=== PATIENT | female | born 1985 | race Caucasian/White ===

== ENCOUNTER 2016-10-30 22:00 | Inpatient (IN) | payer BC ==
[~2016-10-30] VITALS: Ht 167.6 cm; Wt 75.0 kg
[~2016-10-30 22:00] MED LIST: MISCCAP80 PO; OMEG10007 PO; PRENTAB26 PO
[2016-10-30] MEDS ORDERED: LACTATED RINGER'S 1000ML 1,000 ML IV SCH (22:19)
[2016-10-30 22:58] LABS: HEMATOCRIT 37.2 % (37-47); MEAN CELL VOLUME 92.1 fL (80-100); MEAN CORPUSCULAR HEMOGLOBIN 31.4 pg (25-34); MEAN CORPUSCULAR HGB CONC 34.1 g/dl (32-36); MEAN PLATELET VOLUME 12.2 fL (7.4-10.4); PLATELET COUNT 152 K/uL (130-400); RED BLOOD COUNT 4.04 M/uL (4.2-5.4); WHITE BLOOD COUNT 16.71 K/uL (4.8-10.8)
[2016-10-30] MEDS ORDERED: PRENTAB26 PO (23:34)
[2016-10-30] MEDS ORDERED: BUPIVACAINE 0.25% 30 ML VIAL ONE (23:36)
[2016-10-30] MEDS ORDERED: EpHEDrine SULFATE INJ 50 MG/ML AMP ONE (23:36)
[2016-10-30] MEDS ORDERED: FENTANYL CITRATE INJ 50 MCG/1 ML 2 ML VIAL ONE (23:37)
[2016-10-30] MEDS ORDERED: FENTANYL 2MCG/ML ROPIV 1.25MG/ML 100ML BAG EPI ONE (23:37)
[2016-10-31] MEDS ORDERED: LACTATED RINGER'S 1000ML 500 ML IV PRN (00:09)
[2016-10-31] MEDS ORDERED: EpHEDrine SULFATE INJ 50 MG/ML AMP IV PRN (00:15)
[2016-10-31] MEDS ORDERED: DiphenhydrAMINE HCL 50 MG/ML VIAL IV PRN (00:15)
[2016-10-31] MEDS ORDERED: NALOXONE HCL INJ 0.4 MG/1 ML VIAL/CARP IV PRN (00:15)
[2016-10-31] MEDS ORDERED: NALBUPHINE HCL INJ 10 MG/ML AMP IV PRN (00:15)
[2016-10-31] MEDS ORDERED: FENTANYL 2MCG/ML ROPIV 1.25MG/ML 100ML BAG EPI PRN (00:15)
[2016-10-31] MEDS ORDERED: ONDANSETRON INJ 2 MG/ML 2 ML VIAL IV PRN (00:15)
[2016-10-31 00:37] VITALS: Ht 167.6 cm; Wt 75.0 kg
[2016-10-31] MEDS ORDERED: OXYTOCIN 30 UNITS/500ML NSS IV ONE (03:17)
[2016-10-31] MEDS ORDERED: ACETAMINOPHEN/CODEINE 300/30MG TAB PO PRN ×2 (04:30)
[2016-10-31] MEDS ORDERED: OXYCODONE/ACETAMINOPHEN 5-325 TAB PO PRN (04:30)
[2016-10-31] MEDS ORDERED: SUPERCREAM 0.870 % 15GM JAR EXT PRN (04:30)
[2016-10-31] MEDS ORDERED: OXYTOCIN 30 UNITS/500ML NSS IV PRN (04:30)
[2016-10-31] MEDS ORDERED: HYDROCORTISONE ACETATE 25 MG SUPP PR PRN (04:30)
[2016-10-31] MEDS ORDERED: ACETAMINOPHEN 325 MG TAB PO PRN (04:30)
[2016-10-31] MEDS ORDERED: LANOLIN OINT EXT PRN ×2 (04:30)
[2016-10-31] MEDS ORDERED: BENZOCAINE 20% AER SPR 82.5 GM CAN EXT PRN (04:30)
--- NOTE | 2016-10-31 05:28 | Anesthesia Procedure Note ---
Anesthesia Epidural Removal Nt Date & Time Oct 31, 2016 at 05:28 Vital Signs Pain Intensity: 0.0 Notes Mental Status: alert / awake / arousable, participated in evaluation Nausea / Vomiting: adequately controlled Pain: adequately controlled Airway Patency, RR, SpO2: stable & adequate BP & HR: stable & adequate Hydration State: stable & adequate Neuraxial Anesthesia: was administered Anesthetic Complications: no major complications apparent, pt satisfied with anesthetic care Epidural: removed without complications, with tip intact
--- NOTE | 2016-10-31 06:47 | OPERATIVE REPORT ---
DATE OF OPERATION: 10/31/2016 DELIVERY NOTE The patient delivered a live male with left hand compound presentation. was delivered without difficulty and placed on mother's abdomen. The patient had requested a 5 minute delayed cord clamp, so cord was clamped after 5 minutes. Weight is pending, Apgars 8 and 9. Placenta was spontaneously delivered. Cord blood was obtained. Placenta appears grossly normal. The patient is requesting to take the placenta home and her wish has been granted. Inspection of the perineum showed a second-degree midline laceration which was repaired with 2-0 Vicryl in layers. Rectal exam post repair showed good sphincter tone. No sutures are palpated in the rectum. There is good hemostasis at the end of the procedure. Estimated blood loss is 400 mL. Baby and mother are doing well in recovery. All instruments are removed from the vagina and accounted for x2 including sponges, needles and retractors. I attest to the content of the Intraoperative Record and any orders documented therein. Any exception s are noted below.
[2016-10-31] MEDS ORDERED: COUGH DROP (SUGAR FREE) LOZ 24 LOZ/1 BOX ONE (06:49)
[2016-10-31 08:00] VITALS: BP 103/68; PULSE 102; TEMP 36.8; O2SAT 96
[2016-10-31] MEDS: IBUPROFEN 600 MG TAB PO PRN ×4 (08:04→21:02)
[2016-10-31 11:28] VITALS: BP 111/70; PULSE 90; TEMP 36.4; O2SAT 96
[2016-10-31] MEDS: PRENATAL VITAMIN TAB PO SCH (12:10)
[2016-10-31] MEDS: FERROUS SULFATE 325 MG TAB PO SCH (12:10)
[2016-10-31 16:30] VITALS: BP 109/71; PULSE 84; TEMP 36.7; O2SAT 95
[2016-10-31 19:30] VITALS: BP 115/78; PULSE 90; TEMP 36.5
[2016-10-31] MEDS ORDERED: NURSING VERBAL MED ORDER ONE (21:30)
[2016-10-31] MEDS: DOCUSATE SODIUM 100 MG CAP PO SCH (21:45)
[2016-10-31 23:50] VITALS: BP 103/67; PULSE 82; TEMP 36.4
[2016-11-01] MEDS: IBUPROFEN 600 MG TAB PO PRN ×5 (00:03→19:30)
[2016-11-01 03:40] VITALS: BP 105/69; PULSE 73; TEMP 36.5
[2016-11-01 08:00] VITALS: BP 116/70; PULSE 89; TEMP 35.8; O2SAT 96
[2016-11-01] MEDS: DOCUSATE SODIUM 100 MG CAP PO SCH (08:31)
[2016-11-01] MEDS: PRENATAL VITAMIN TAB PO SCH (08:31)
[2016-11-01] MEDS: FERROUS SULFATE 325 MG TAB PO SCH (08:31)
--- NOTE | 2016-11-01 08:49 | OB/GYN Progress Note ---
[facility] Progress Note Date of Service: Nov 01, 2016. Patient is seen and examined. She feels well, no complaints. Likes to go home Ambulating without dizziness Voiding without difficulty Tolerating regular diet with out N&V Bleeding is minimal No fever/ chills/ CP/ SOB/ N&V/ Leg pain Breast feeding without problems Date Time Temp Pulse Resp B/P (MAP) Pulse Ox O2 Delivery O2 Flow Rate FiO2 11/01/16 03:40 36.5 73 16 105/69 (81) Room Air 10/31/16 23:50 Room Air 10/31/16 23:50 36.4 82 16 103/67 (79) Room Air 10/31/16 19:30 36.5 90 20 115/78 (90) Room Air 10/31/16 16:30 Room Air 10/31/16 16:30 36.7 84 18 109/71 (84) 95 Room Air 10/31/16 11:28 36.4 90 18 111/70 (84) 96 Room Air Test 10/30/16 22:45 White Blood Count 16.71 H Red Blood Count 4.04 L Hemoglobin 12.7 Hematocrit 37.2 Mean Corpuscular Volume 92.1 Mean Corpuscular Hemoglobin 31.4 Mean Corpuscular Hemoglobin Concent 34.1 RDW Standard Deviation 43.9 RDW Coefficient of Variation 13.2 Platelet Count 152 Mean Platelet Volume 12.2 H PE: General: Alert, orientedx3, NAD Abd: soft, NT, fundus firm, below Umbilicus Perineum intact, Lochia rubra minimal Ext; NT, no edema AP: 31 yo s/p , ppd# 1 VSS Afebrile doing well CBC pending Continue routine care All questions were answered Instructions were given when to call D/C home this afternoon
--- NOTE | 2016-11-01 08:51 | Discharge Instructions ---
Discharge Instructions Date of Service Nov 01, 2016. Admission Reason for Admission: Check Labor Discharge Discharge Diagnosis / Problem: Discharge Goals Goal(s): Routine recovery after delivery Activity Recommendations Activity Limitations: as noted below Lifting Limitations: gradually increase as tolerated Exercise/Sports Limitations: until after follow-up appointment May Resume Sexual Activity: after follow-up appointment Shower/Bathe: no limitations Driving or Machine Use: ACTIVITY RECOMMENDATIONS: * Gradual return to full activity over the next 2-3 weeks. * No lifting - nothing heavier than baby over the next 2-3 weeks. * Do not engage in vigorous exercise, sexual activity or sports until cleared by your physician. * Do not drive or operate any motorized equipment until cleared by your physician. * You may shower/bathe daily. BREAST CARE: If you are not breast feeding: * Wear a supportive bra 24 hours a day for one to two weeks. * Avoid stimulating your breasts and nipples as much as possible during the first few weeks after delivery. * When taking a shower, have the warm water hit your back, not breasts. * When your breasts feel full, apply ice packs. Usually three to four times a day helps ease the discomfort. * Take a mild pain medication (Tylenol/Motrin) when you are uncomfortable. If breast feeding: * Use breast milk to lubricate nipples. Lansinoh cream may be used for sore nipples. You do not need to remove cream prior to breast feeding. If using a different brand of cream, check the label for directions regarding removal of cream prior to nursing. * Wear a supportive bra. * If having problems with breasts or breast feeding, call a data integrity consultant or your health care provider. EPISIOTOMY CARE: After delivery, if you have an episiotomy (stitches), the following steps will ease discomfort and aid healing. * For the first 24 hours after delivery, place ice packs next to your episiotomy to help reduce swelling. * After the first 24 hour-period, sitz baths, either portable or in the tub, are suggested. A shower with a shower arm sprayed over the episiotomy may be comforting. * Marlen care should be done after each voiding and bowel movement. Squirt warm water from a plastic bottle over the perineum (region of the body between the anus and urinary opening) and pat dry. * Use Dermoplast to ease discomfort. Shake container. [place] directly over the episiotomy. * Place a Tucks on a clean sanitary pad next to your episiotomy. OVER THE COUNTER MEDICATION: * For discomfort or pain, you may use Acetaminophen (Tylenol), Ibuprofen (Advil ), or Naproxen (Aleve) following the package directions. * For constipation you may use Colace following the package directions. SPECIAL CARE INSTRUCTIONS: When you are discharged from the hospital, it is important for you to follow the instructions listed below: * During the first week at home, you should be able to care for yourself and your baby. In addition, the usual light household activities are encouraged. * Limit your activities to the way you feel. Do not try to clean the house or move furniture. Be sensible. * If you actively engage in sports and have done so up until the time of your delivery, you may resume these activities as soon as you feel able. This may take up to one month or even longer. Use good judgment. * Continue to take your vitamins for at least six weeks after the of your baby. * Your diet need not be limited unless you were on a special diet before your delivery. Breast-feeding mothers need around 2500 calories per day and at least 64-80 ounces of fluid per day (8 to 10 glasses). * You should eat foods from the four major food groups. Crash diets or fad diets are to be avoided. Eating lean meats, fresh fruits and vegetables, low-fat dairy products, high fiber foods and a regular exercise program, will help you get back to your pre- weight without putting your health at risk. * Constipation is sometimes a problem after delivery. Take a mild laxative as needed. If breast feeding, Milk of Magnesia is acceptable to use. You may use a suppository or Fleets enema if no episiotomy. * A daily shower or tub bath is suggested. Be sure to thoroughly and gently dry the perineum. * A bloody vaginal discharge will usually continue until around four weeks post . A small amount of bleeding may continue for as long as six weeks. Vaginal discharge changes from the bright red bleeding after delivery to pink then brownish and finally yellowish-pink before becoming white and disappearing. * Bleeding may increase with activity. Your first period may come in 4-8 weeks. If you are breast feeding, your period may be delayed even longer. * [place] (sex) can begin whenever both you and your partner feel comfortable and do not have any form of genital infection. It is recommended that you wait until after your return appointment and discuss with your physician. If you have questions, please talk to your health care practitioner. A condom should be used to prevent infection and . * Foreplay, gentle intercourse and lubrication is very important the first several times to prevent pain. A water-based lubricant such as K-Y jelly or Astroglide may be used. * Tampons may be used six weeks after delivery. * Douching should be avoided for 6 weeks after delivery. * If you have RH negative blood and your baby is RH positive, you will receive RHOGAM by injection prior to discharge. The nurse will give you a card to keep with you that has the date and place that you received RHOGAM after delivery. * During your care, you had a Rubella screen done to check for the presence of rubella antibodies in your blood. If your test was negative, you will receive a Rubella vaccine prior to discharge. This vaccine may cause a fever, soreness at the injection site and flu-like symptoms. If these symptoms persist, notify your health care practitioner. is not advised for three months after a Rubella vaccine. There is a higher chance of having a baby with defects if conceived within three months of getting the vaccine. * If you were discharged 24 hours from delivery or before 48 hours: Visiting nurses will come to your home 48 hours after discharge to assess you and your baby. The visiting nurse will meet with you while you are in the hospital to arrange a time and get directions to your home. * Verbalizes understanding of car seat law as reviewed with patient nursing. * Car Seat hand-out given and reviewed with patient by nursing. * Shaken baby information reviewed with patient by nursing. Call you doctor if: * Heavy bleeding (saturating several pads an hour) or passing clots the size of your fist. * A fever >101 degrees F (38.3 degrees C) on two occasions four hours apart and/or chills. * Unusual pain in the pelvic or vaginal areas. * "Baby Blues" lasting longer than two weeks. If you have any questions or concerns, call your health care practitioner at . FOLLOW-UP VISIT: * Please call the office at to schedule a 6 week examination. It is important you keep this appointment. * It is important for you to make arrangements for either yearly or twice yearly check-ups thereafter. . Current Hospital Diet Patient's current hospital diet: Regular OB Diet Discharge Diet Recommended Diet: Regular Diet Pending Studies Studies pending at discharge: no Medical Emergencies . Who to Call and When: Medical Emergencies: If at any time you feel your situation is an emergency, please call 911 immediately. . Non-Emergent Contact Non-Emergency issues call your: Surgeon Call Non-Emergent contact if: temperature is above 100.5, your pain is not controlled, your pain is worsening . . "Provider Documentation" section prepared by Celestino Barnett. . VTE Core Measure Inpt VTE Proph given/why not?: Treatment not indicated
[2016-11-01 09:43] LABS: BASO % 0.3 %; BASO ABS # 0.05 K/uL (0-0.2); COMPLETE YES; EOS % 1.8 %; HEMATOCRIT 35.6 % (37-47); LYMPH % 10.9 %; LYMPH ABS # 1.66 K/uL (1.2-3.4); MEAN CELL VOLUME 94.7 fL (80-100); MEAN CORPUSCULAR HEMOGLOBIN 32.7 pg (25-34); MEAN CORPUSCULAR HGB CONC 34.6 g/dl (32-36); MEAN PLATELET VOLUME 11.8 fL (7.4-10.4); MONO % 4.6 %; NEUT % 81.4 %; PLATELET COUNT 144 K/uL (130-400); RED BLOOD COUNT 3.76 M/uL (4.2-5.4); WHITE BLOOD COUNT 15.27 K/uL (4.8-10.8)
[2016-11-01 15:43] VITALS: BP 98/66; PULSE 84; TEMP 36.7
[2016-11-01 19:00] VITALS: BP_DIAS 66; PULSE 84; TEMP 36.7
[2016-11-01] MEDS ORDERED: BISACODYL 5 MG TABEC PO SCH (20:00)
[2016-11-02] MEDS ORDERED: BISACODYL 10 MG SUPP PR PRN (07:00)
== END 2016-11-01 20:45 | disposition home or self-care (01) | DRG 775 ==
LOC: C.OPB 22:00 → C.LD 22:00 → C.OPB 22:27 → C.OBG 10-31 09:26
PROVIDERS: ADMIT Obstetrics & Gynecology; ATTEND Obstetrics & Gynecology
PROC: 0KQM0ZZ Repair Perineum Muscle, Open Approach (ICD-10-PCS; principal; 2016-10-31)
PROC: 10E0XZZ Delivery of Products of Conception, External Approach (ICD-10-PCS; principal; 2016-10-31)
PROC: 10907ZC Drainage of Amniotic Fluid, Therapeutic from Products of Conception, Via Natural or Artificial Opening (ICD-10-PCS; principal; 2016-10-31)
DX: O70.1 Second degree perineal laceration during delivery (principal); Z37.0 Single live birth; Z3A.39 39 weeks gestation of pregnancy

== ENCOUNTER → 2017-01-19 | Outpatient (CLI) | payer BC | END | disposition home or self-care (01) | LOC: C.LAB 07:29 | PROVIDERS: ATTEND Nutritionist | DX: R53.83 Other fatigue (principal) ==

== ENCOUNTER 2018-07-16 17:57 | Inpatient (IN) ==
[2018-07-16] MEDS ORDERED: OXYTOCIN 30 UNITS/500 ML BAG IV PRN ×2 (18:04→21:20)
[2018-07-16] MEDS ORDERED: LACTATED RINGER'S 1,000 ML IV PRN ×2 (18:04→18:43)
--- NOTE | 2018-07-16 18:10 | Obstetrical Progress Note ---
Date of Service July 16, 2018 Subjective Admission note 32 F [id number] at 39 weeks admitted with SROM and onset of labor. GBS is negative. FHT Cat 1. Exam shows cervix to be 4-5/60/-2/clear amniotic fluid leaking/ vertex/anterior. Patient will be requesting epidural. No complications during this . Physical Exam 2 Vital Signs (Past 24 Hours): Last Vital Signs Pulse 98 H 07/16/18 18:04 BP 124/89 07/16/18 18:04
[2018-07-16] MEDS ORDERED: ePHEDrine sulfate 50 MG/ML AMP ONE (18:28)
[2018-07-16] MEDS ORDERED: fentaNYL citrate 100 MCG/2 ML VIAL ONE (18:28)
[2018-07-16] MEDS ORDERED: BUPIVACAINE 0.25% 30 ML VIAL ONE (18:28)
[2018-07-16] MEDS ORDERED: fentaNYL 2MCG/ML ROPIV 1.25MG/ML 100 ML BAG EPI ONE (18:29)
--- NOTE | 2018-07-16 18:41 | Anesthesiology Consultation ---
Date of Service July 16, 2018 Assessment & Plan (1) Encounter for pre-operative examination: Chart Review Chart Review: Patient NOT seen in Pre Admission Testing and Acceptable Risk for Labor Epidural Consults Requested none History Height/Weight Height: 5 ft 6 in Weight: 79.7 kg Allergies Allergy/AdvReac Type Severity Reaction Status Date / Time No Known Allergies Allergy Unverified 07/16/18 18:08 Medications Home Medications Medication Instructions Recorded Confirmed Last Taken lactobacillus combination no.4 3,000 mmu cells PO DAILY 07/16/18 07/16/18 08:00 [Probiotic] omega 4-bgz-[id number]-fish oil [Fish Oil] 1 cap PO DAILY 07/16/18 07/16/18 07/16/18 08 :00 vit no.[id number] 1 tab PO DAILY 07/16/18 07/16/18 07/16/18 08:00 [ Vitamin] Past Medical History healthy Past Surgical History d and c Past Anesthesia History No Hx of Anesthesia Complications and No Family Hx of Anesthesia Complications History of PONV No Motion Sickness Screening History of Motion Sickness: No Social History Smoking Status: Never smoker Hx Alcohol Use: No Hx Substance Use: No Exercise / Class Metabolic Activity II 4-5 Yardwork/Stairs/Walk up hill Physical Exam Vital Signs Last Vital Signs Temp 36.8 C 07/16/18 18:19 Pulse 109 H 07/16/18 18:59 Resp 18 07/16/18 18:19 BP 125/86 07/16/18 18:59 Pulse Ox 99 07/16/18 18:58 Testing Laboratory Results 07/16/18 18:30
[2018-07-16 18:43] LABS: Hematocrit (blood only) 36.1 % (37-47); Hemoglobin 12.5 g/dL (12.0-16.0); Mean Corpuscular Volume 91.6 fL (80-100); Mean Platelet Volume 12.2 fL (7.4-10.4); Platelet Count 155 K/uL (130-400); RDW Coefficient of Variation 13.4 % (11.5-14.5); RDW Standard Deviation 44.4 fL (36.4-46.3); Red Blood Count 3.94 M/uL (4.2-5.4); White Blood Count 11.89 K/uL (4.8-10.8)
[2018-07-16] MEDS ORDERED: DiphenhydrAMINE HCL 50 MG/ML VIAL IV PRN (18:43)
[2018-07-16] MEDS ORDERED: ONDANSETRON INJ 2 MG/ML 2 ML VIAL IV PRN (18:43)
[2018-07-16] MEDS ORDERED: NALBUPHINE HCL INJ 10 MG/ML AMP IV PRN (18:43)
[2018-07-16] MEDS ORDERED: fentaNYL 2MCG/ML ROPIV 1.25MG/ML 100 ML BAG EPI PRN (18:43)
[2018-07-16] MEDS ORDERED: NALOXONE HCL 1 MG in SODIUM CHLORIDE 0.9% 1000ML 1,000 ML IV PRN (18:43)
[2018-07-16] MEDS ORDERED: ePHEDrine sulfate 50 MG/ML AMP IV PRN (18:43)
[2018-07-16] MEDS ORDERED: NALOXONE HCL 0.4 MG/1 ML VIAL/CARP IV PRN (18:43)
[2018-07-16 18:46] LABS: Mean Corpuscular Hgb Conc 34.6 g/dL (32-36)
[2018-07-16] MEDS ORDERED: LACTATED RINGER'S 1,000 ML IV SCH (19:00)
[2018-07-16] MEDS ORDERED: CALCIUM CARBONATE 500 MG CHEWABLE TAB PO PRN (19:37)
[2018-07-16] MEDS ORDERED: HYDROCORTISONE ACETATE 25 MG SUPP PR PRN (21:20)
[2018-07-16] MEDS ORDERED: BISACODYL 10 MG SUPP PR PRN (21:20)
[2018-07-16] MEDS ORDERED: ACETAMINOPHEN 325 MG TAB PO PRN (21:20)
[2018-07-16] MEDS ORDERED: DIPHTHERIA/TETANUS/PERTUSSIS 0.5 ML SYR/VIAL IM ONE (21:20)
[2018-07-16] MEDS ORDERED: BENZOCAINE 20% AER SPR 82.5 GM CAN EXT PRN (21:20)
[2018-07-16] MEDS ORDERED: SUPERCREAM 0.870% 15 GM JAR EXT PRN (21:20)
--- NOTE | 2018-07-16 21:24 | Procedure Note ---
Vaginal Delivery Summary Date of Service July 16, 2018 Supervising Physician Co-Signing Physician Notes Delivery note live male over intact perineum EDEN with Apgars 8/9. cord blood obtained followed by spontaneous delivery of placenta. Small 1st degree tear repaired with 4/0 Vicryl suture. EBL 100 ml. Final sponge, needle amnd instrument count are correct. Mom and baby stable.
[2018-07-17] MEDS: IBUPROFEN 600 MG TAB PO PRN ×4 (02:21→23:16)
[2018-07-17 07:23] LABS: Hematocrit (blood only) 33.8 % (37-47); Hemoglobin 11.8 g/dL (12.0-16.0); Mean Corpuscular Hgb Conc 34.9 g/dL (32-36); Mean Corpuscular Volume 93.4 fL (80-100); Mean Platelet Volume 11.9 fL (7.4-10.4); Platelet Count 154 K/uL (130-400); RDW Coefficient of Variation 13.3 % (11.5-14.5); RDW Standard Deviation 45.5 fL (36.4-46.3); Red Blood Count 3.62 M/uL (4.2-5.4); White Blood Count 15.72 K/uL (4.8-10.8)
--- NOTE | 2018-07-17 07:46 | Anesthesia Procedure Note ---
Date of Service July 17, 2018 Anesthesia Post Epidural Note Vital Signs Vital Signs: Temp Pulse Pulse Resp BP BP Pulse Ox 07/17/18 02:15 36.5 C 100 H 100 H 20 110/66 110/66 07/17/18 00:20 36.8 C 94 H 18 112/59 L 07/16/18 23:56 94 H 18 112/59 L 07/16/18 23:04 100 H 18 106/62 07/16/18 22:49 100 H 112/62 07/16/18 22:45 36.5 C 18 07/16/18 22:34 101 H 115/66 07/16/18 22:19 92 H 109/62 07/16/18 22:15 36.5 C 18 07/16/18 22:04 86 116/56 L 07/16/18 21:45 18 07/16/18 21:30 18 07/16/18 21:19 91 H 120/67 07/16/18 21:08 111 H 99 07/16/18 21:05 123 H 130/76 07/16/18 21:03 114 H 100 07/16/18 20:58 105 H 100 07/16/18 20:53 96 H 100 07/16/18 20:49 95 H 116/74 07/16/18 20:48 105 H 99 07/16/18 20:43 96 H 100 07/16/18 20:38 109 H 99 07/16/18 20:35 97 H 111/73 07/16/18 20:33 96 H 99 07/16/18 20:30 18 07/16/18 20:28 107 H 99 07/16/18 20:23 99 H 99 07/16/18 20:20 98 H 103/69 07/16/18 20:18 94 H 99 07/16/18 20:13 103 H 99 07/16/18 20:08 102 H 118/74 97 07/16/18 20:05 103 H 84/55 L 07/16/18 20:03 99 H 98 07/16/18 20:00 18 07/16/18 19:58 96 H 98 07/16/18 19:53 98 H 99 07/16/18 19:50 90 114/58 L 07/16/18 19:48 98 H 98 07/16/18 19:43 107 H 99 07/16/18 19:38 99 H 99 07/16/18 19:33 102 H 99 07/16/18 19:31 85 104/55 L 07/16/18 19:30 18 07/16/18 19:29 96 H 103/56 L 07/16/18 19:28 98 H 98 07/16/18 19:26 99 H 103/56 L 07/16/18 19:23 91 H 102/56 L 99 07/16/18 19:20 90 102/55 L 07/16/18 19:18 95 H 98 07/16/18 19:17 103 H 104/56 L 07/16/18 19:14 96 H 105/57 L 07/16/18 19:13 100 H 99 07/16/18 19:11 95 H 103/64 07/16/18 19:08 98 H 119/77 97 07/16/18 19:04 104 H 120/76 07/16/18 19:03 102 H 97 07/16/18 19:02 99 H 119/79 07/16/18 18:59 109 H 125/86 07/16/18 18:58 107 H 99 07/16/18 18:56 98 H 126/83 07/16/18 18:53 100 H 98 07/16/18 18:48 101 H 100 07/16/18 18:43 93 H 100 07/16/18 18:34 96 H 97 07/16/18 18:19 36.8 C 18 07/16/18 18:04 98 H 124/89 Pain Intensity Abdomen: Pain Intensity: 3 Notes Mental Status: alert / awake / arousable and participated in evaluation Nausea / Vomiting: adequately controlled Pain: adequately controlled Airway Patency, RR, SpO2: stable & adequate BP & HR: stable & adequate Hydration State: stable & adequate Neuraxial Anesthesia: was administered and sensory block is resolving Anesthetic Complications: no major complications apparent Epidural: Removed without complications and With tip intact
[2018-07-17] MEDS ORDERED: NON-FORMULARY MEDICATION (Lactobacillus Combination No.4 [Probiotic] 3,000 mmu cells) PO SCH (09:00)
[2018-07-17] MEDS ORDERED: OSELTAMIVIR PHOSPHATE 75 MG CAP PO SCH (09:00)
[2018-07-17] MEDS ORDERED: PRENATAL VITAMIN 1 TAB PO SCH (09:00)
[2018-07-17] MEDS: OMEGA-3 (PURIFIED FISH OIL) 1 GM CAP PO SCH (10:15)
[2018-07-17] MEDS: PRENATAL VITAMIN 1 TAB PO SCH (10:15)
[2018-07-17] MEDS: DOCUSATE SODIUM 100 MG CAP PO SCH ×2 (10:15→21:31)
[2018-07-17] MEDS: OSELTAMIVIR PHOSPHATE 75 MG PO SCH (10:16)
[2018-07-17] MEDS ORDERED: CALCIUM CARBONATE 500 MG CHEWABLE TAB PO PRN (10:21)
[2018-07-17] MEDS ORDERED: GUAIFENESIN/CODEINE 200MG/20MG 10ML UDC PO PRN (10:26)
--- NOTE | 2018-07-17 10:29 | Obstetrical Progress Note ---
Date of Service July 17, 2018 Assessment & Plan (1) normal course: PPD #1 pt doing well c/o cough Rx for Guafenesin anticipate dich tomorrow Subjective Ambulation: ambulating normally Voiding: no voiding problems Passing Gas:: Yes Diet Tolerance:: regular diet Lochia:: Small Feeding Type:: breast feeding Review of Systems All systems reviewed & are unremarkable except as noted in HPI & below Physical Exam Vital Signs (Past 24 Hours) Last Vital Signs Temp 36.5 C 07/17/18 02:15 Pulse 100 H 07/17/18 02:15 Resp 20 07/17/18 02:15 BP 110/66 07/17/18 02:15 Pulse Ox 99 07/16/18 21:08 Constitutional WD/WN, vitals as above well developed and well nourished Eyes PERRL, conjunctivae normal, anicteric sclerae Neck trachea midline, no thyromegaly Respiratory normal respiratory effort, lungs clear to auscultation Auscultation: no crackles, no rales and no wheezes Cardiovascular RRR, no murmur, no edema Gastrointestinal (Abdomen) normal bowel sounds, soft, nontender, no hepatosplenomegaly Uterus is below umbilicus Musculoskeletal no cyanosis or clubbing, extremities motor strength 5/5 Skin no rashes, warm and dry Neurologic patellar DTR's 2+ bilat, sensation intact Psychiatric A+Ox3, euthymic affect Genitourinary normal external appearance
[2018-07-17] MEDS ORDERED: BISACODYL 5 MG TABEC PO SCH (20:00)
[2018-07-18 07:07] LABS: Hematocrit (blood only) 37.2 % (37-47); Hemoglobin 12.7 g/dL (12.0-16.0)
[2018-07-18] MEDS: DOCUSATE SODIUM 100 MG CAP PO SCH (08:10)
[2018-07-18] MEDS: OMEGA-3 (PURIFIED FISH OIL) 1 GM CAP PO SCH (08:11)
[2018-07-18] MEDS: OSELTAMIVIR PHOSPHATE 75 MG PO SCH (08:11)
[2018-07-18] MEDS: PRENATAL VITAMIN 1 TAB PO SCH (08:11)
--- NOTE | 2018-07-18 09:38 | Obstetrical Progress Note ---
Date of Service July 18, 2018 Assessment & Plan (1) normal course: PPD #2 pt doing well no complaints disch home Subjective Ambulation: ambulating normally Voiding: no voiding problems Passing Gas:: Yes Diet Tolerance:: regular diet Lochia:: Small Feeding Type:: breast feeding Review of Systems All systems reviewed & are unremarkable except as noted in HPI & below Physical Exam Vital Signs (Past 24 Hours) Last Vital Signs Temp 36.5 C 07/18/18 07:24 Pulse 89 07/18/18 07:24 Resp 18 07/18/18 07:24 BP 101/70 07/18/18 07:24 Pulse Ox 97 07/18/18 07:24 Constitutional WD/WN, vitals as above well developed and well nourished Eyes PERRL, conjunctivae normal, anicteric sclerae Neck trachea midline, no thyromegaly Respiratory normal respiratory effort, lungs clear to auscultation Auscultation: no crackles, no rales and no wheezes Cardiovascular RRR, no murmur, no edema Gastrointestinal (Abdomen) normal bowel sounds, soft, nontender, no hepatosplenomegaly Uterus is below umbilicus Musculoskeletal no cyanosis or clubbing, extremities motor strength 5/5 Skin no rashes, warm and dry Neurologic patellar DTR's 2+ bilat, sensation intact Psychiatric A+Ox3, euthymic affect Genitourinary normal external appearance
== END 2018-07-18 10:20 | disposition home or self-care (01) | DRG 807 ==
LOC: OPB 17:57 → 4S1 17:58 → 4S2 07-17 01:00